=== PATIENT | female | born 1975 | race Caucasian/White ===

== ENCOUNTER 2017-02-17 09:10 | Emergency (ER) | payer OTHER ==
[2017-02-17 09:21] VITALS: BP 112/75
--- NOTE | 2017-02-17 09:58 | ED ---
Influenza-Like Illness - HPI Summary HPI Summary: PT presents through amb triage with complaint of body aches, nausea, sinus congestion. Pt states feels warm, denies documented fever. + po no n/v. + fatigue. Pt states son was dx with influenza. PT states had the flu vaccine. PT also reports recurrent sinus infection - has had sinus surgery. Pt completed a coarse of abx, bactrim, 1 week ago for sinus infection. States has some facial pressure and concern returning sinus infection. Pt's medications reviewed at this visit - History of Current Complaint Chief Complaint: UCGeneralIllness Time Seen by Provider: 02/17/17 09:11 Hx Obtained From: Patient Onset/Duration: Gradual Onset Severity: Mild Associated Signs & Symptoms: Fever - tactile, Myalgia, Cough, Nasal Congestion Related Hx: Possible Flu/Infectious Exposure - Allergy/Home Medications Allergies/Adverse Reactions: Allergies Allergy/AdvReac Type Severity Reaction Status Date / Time Clavulanic Acid AdvReac Severe Diarrhea Verified 02/17/17 09:16 [From Augmentin] Home Medications: Home Medications diPHENhydraMINE PO* [Benadryl PO 25 MG TAB*] 25 - 50 mg PO Q6H PRN 02/17/17 [ History Confirmed 02/17/17] PMH/Surg Hx/FS Hx/Imm Hx Previously Healthy: Yes Endocrine/Hematology History: Denies: Hx Diabetes, Hx Thyroid Disease Cardiovascular History: Reports: Hx Hypertension Denies: Hx Pacemaker/ICD Respiratory History: Reports: Hx Asthma, Other Respiratory Problems/Disorders - SINUS PROBLEMS Denies: Hx Chronic Obstructive Pulmonary Disease (COPD) GI History: Reports: Other GI Disorders - IBS Denies: Hx Ulcer History: Denies: Hx Renal Disease Sensory History: Denies: Hx Hearing Aid Neurological History: Reports: Other Neuro Impairments/Disorders - CHRONIC MIGRAINES Psychiatric History: Denies: Hx Panic Disorder - Surgical History Surgery Procedure, Year, and Place: Hysterectomy, 2014, [place]; Sinus Surgeries x 4 Infectious Disease History: No Infectious Disease History: Denies: Hx Clostridium Difficile, Hx Hepatitis, Hx Human Immunodeficiency Virus (HIV), Hx of Known/Suspected MRSA, Hx Shingles, Hx Tuberculosis, Hx Known/ Suspected VRE, Hx Known/Suspected VRSA, History Other Infectious Disease, Traveled Outside the [place] in Last 30 Days - Family History Known Family History: Positive: None - Social History Lives: With Family Alcohol Use: Rare Substance Use Type: Reports: None Hx Tobacco Use: Yes Smoking Status (MU): Former Smoker Type: Cigarettes Have You Smoked in the Last Year: Yes Review of Systems Constitutional: Negative Positive: Fever, Fatigue Eyes: Negative Positive: Sore Throat, Nasal Discharge Cardiovascular: Negative Respiratory: Negative Positive: Cough Gastrointestinal: Negative Genitourinary: Negative Musculoskeletal: Negative Skin: Negative Neurological: Negative Psychological: Normal All Other Systems Reviewed And Are Negative: Yes Physical Exam Triage Information Reviewed: Yes Vital Signs On Initial Exam: Initial Vitals Temp Pulse Resp BP Pulse Ox 98.8 F 74 16 112/75 98 02/17/17 09:14 02/17/17 09:14 02/17/17 09:14 02/17/17 09:14 02/17/17 09:14 Vital Signs Reviewed: Yes Appearance: Positive: Well-Appearing, No Pain Distress, Well-Nourished Skin: Positive: Warm, Skin Color Reflects Adequate Perfusion, Dry Head/Face: Positive: Normal Head/Face Inspection Eyes: Positive: Normal, EOMI, BELLE, Conjunctiva Clear ENT: Positive: Hearing grossly normal, Other - turbinates mild erythema R>L. Negative: TMs normal - right TM - scant fluid - no erythema, no retraction, no buldge Neck: Positive: Supple, Nontender, No Lymphadenopathy Respiratory/Lung Sounds: Positive: Clear to Auscultation, Breath Sounds Present Cardiovascular: Positive: Normal, RRR. Negative: Murmur Abdomen Description: Positive: Nontender, No Organomegaly, Soft Bowel Sounds: Positive: Present Musculoskeletal: Positive: Normal Neurological: Positive: Normal, Alert, Oriented to Person Place, Time Psychiatric: Positive: Normal AVPU Assessment: Alert - Ry Coma Scale Best Eye Response: 4 - Spontaneous Best Motor Response: 6 - Obeys Commands Best Verbal Response: 5 - Oriented Diagnostics - Vital Signs Vital Signs Temp Pulse Resp BP Pulse Ox 02/17/17 09:14 98.8 F 74 16 112/75 98 - Laboratory Lab Results: Lab Results 02/17/17 Range/Units 09:27 Influenza A (Rapid) Negative (Negative) Influenza B (Rapid) Negative (Negative) Lab Statement: Any lab studies that have been ordered have been reviewed, and results considered in the medical decision making process. Flu Symptom Course/Dx - Course Assessment/Plan: Pt presents with cough,body aches, head congestion, sinus pressure with influenza exposure. Influenza neg. Will start Tamiflu prophylaxis. hydrate. motrin/apap - Diagnoses Provider Diagnoses: Viral syndrome Discharge - Discharge Plan Condition: Stable Disposition: HOME Prescriptions: Oseltamivir CAP* [Tamiflu CAP*] 75 mg PO DAILY #7 cap Patient Education Materials: Viral Syndrome (ED) Referrals: Caitlyn Mcgee [Primary Care Provider] - Additional Instructions: Stay well hydrated. Drink plenty of non-alcoholic, non-caffinated beverages. Once you start to feel better - change your toothbrush and your pillowcase. These infections are spread by secretions - do NOT share eating or drinking utensils - clean items you share with other people such as cell phones, computer mouse, TV remote, computer tablets, etc You have been given a prescription for Tamiflu prophylaxis as you have an individual with positive flu in your home environment Alternate ibuprofen (Advil, Motrin) 600mg and Tylenol every 3 hours for pain or fever. Take with food. Do NOT take for more than 4-5 days. Continue with your allergy medication and decongestants as previously prescribed Call your doctor on Saturday to schedule a follow-up appointment. Call your doctor or return with any questions or concerns
== END 2017-02-17 10:05 | disposition home or self-care (01) ==
LOC: UCCORT 09:10
DX: B34.9 Viral infection, unspecified (principal); I10 Essential (primary) hypertension; J45.909 Unspecified asthma, uncomplicated; Z88.1 Allergy status to other antibiotic agents; Z87.891 Personal history of nicotine dependence
CPT/HCPCS: 87502; 99212; G0463

== ENCOUNTER → 2017-05-08 20:08 | Emergency (ER) | payer SELFPAY ==
[~2017-05-08 20:08] MED LIST: PPD test dose* 5 TU/0.1 ML TEST (*USE PPD ORDER SET*) ONE
== END | disposition home or self-care (01) ==
LOC: OHCORT 20:08
DX: Z11.1 Encounter for screening for respiratory tuberculosis (principal)

== ENCOUNTER 2017-10-30 13:43 | Emergency (ER) | payer OTHER ==
[2017-10-30 15:16] VITALS: BP 127/72
--- NOTE | 2017-10-31 20:58 | UC ---
Nausea/Vomiting/Diarrhea HPI - HPI Summary HPI Summary: 42 year old female presents with acute nausea, vomiting and diarrhea. - History of Current Complaint Chief Complaint: UCGeneralIllness Stated Complaint: VOMITTING,DIARRHEA Time Seen by Provider: 10/30/17 15:27 Hx Obtained From: Patient Hx Last Menstrual Period: 12/26/13 Onset/Duration: Sudden Onset Severity Initially: Moderate Severity Currently: Moderate Pain Intensity: 4 Pain Scale Used: 0-10 Numeric Location: Diffuse Character: Sharp Aggravating Factor(s): Food - Allergies/Home Medications Allergies/Adverse Reactions: Allergies Allergy/AdvReac Type Severity Reaction Status Date / Time Clavulanic Acid AdvReac Severe Diarrhea Verified 10/30/17 15:08 [From Augmentin] PMH/Surg Hx/FS Hx/Imm Hx Previously Healthy: Yes - Surgical History Surgical History: Yes Surgery Procedure, Year, and Place: Hysterectomy, 2014, [place]; Sinus Surgeries x 4 - Family History Known Family History: Positive: None - Social History Alcohol Use: Occasionally Substance Use Type: None Smoking Status (MU): Former Smoker Type: Cigarettes Have You Smoked in the Last Year: Yes When Did the Patient Quit Smoking/Using Tobacco: 11/27/13 - Immunization History Most Recent Influenza Vaccination: 2017 Review of Systems Constitutional: Negative Skin: Negative Eyes: Negative ENT: Negative Respiratory: Negative Cardiovascular: Negative Gastrointestinal: Abdominal Pain, Diarrhea, Nausea Genitourinary: Negative Motor: Negative Neurovascular: Negative Musculoskeletal: Negative Neurological: Negative Psychological: Negative All Other Systems Reviewed And Are Negative: Yes Physical Exam Triage Information Reviewed: Yes Vital Signs: Initial Vital Signs Temp 37.0 C 10/30/17 15:10 Pulse 108 10/30/17 15:10 Resp 18 10/30/17 15:10 BP 127/72 10/30/17 15:10 Pulse Ox 98 10/30/17 15:10 Vital Signs Reviewed: Yes Eye Exam: Normal ENT Exam: Normal Dental Exam: Normal Neck exam: Normal Neck: Positive: 1 Respiratory Exam: Normal Cardiovascular Exam: Normal Abdomen Description: Positive: Other: - diffuse tenderness Musculoskeletal Exam: Normal Neurological Exam: Normal Psychological Exam: Normal Skin Exam: Normal Naus/Vom/Diarrhea Course/Dx - Differential Dx/Diagnosis Provider Diagnoses: diarrhea. nausea. abdominal pain Condition At Discharge: Stable Discharge - Discharge Plan Condition: Stable Disposition: HOME Prescriptions: Diphenoxylat/Atrop 2.5-0.025M* [Lomotil TAB*] 1 tab PO Q8H PRN #9 tab MDD 3 PRN Reason: Diarrhea Ondansetron ODT TAB* [Zofran 4 MG Odt TAB*] 4 mg PO Q8H PRN #12 tab.odt MDD 3 PRN Reason: Nausea/Vomiting Patient Education Materials: Dehydration (ED), Acute Nausea and Vomiting (ED) Forms: *Work Release Referrals: Caitlyn Mcgee [Primary Care Provider] -
== END 2017-10-30 15:40 | disposition home or self-care (01) ==
LOC: UCCORT 13:43
DX: Z87.891 Personal history of nicotine dependence (principal); R19.7 Diarrhea, unspecified; R10.9 Unspecified abdominal pain
CPT/HCPCS: 87045; 87046; 87077; 87328; 87329; 87338; 87493; 87899; 99212; G0463

== ENCOUNTER 2018-09-02 06:46 | Inpatient (IN) | payer BC ==
[~2018-09-02 06:46] MED LIST changes: +Buffered Lidocaine 0.9% SYRIN* 5 ML/SYR SYRINGE INTRADERM ONE; +Famotidine IV* 10 MG/ML 2 ML (20 mg) IV ONE; -PPD test dose* 5 TU/0.1 ML TEST (*USE PPD ORDER SET*) ONE
--- OUTSIDE RECORDS SUMMARY | 2018-09-02 06:50 | XMS REPORT ---
:1975 External Reference #:[id number] Author Organization [employer] [facility] Address [address] [place] [address] [place] [address] Phone [phone] Care Team Providers Name Role Phone Caitlyn Mcgee FNP Primary Care Physician Unavailable Payers Type Date Identification Numbers Payment Provider Subscriber Commercial Policy Number: [id number] [employer] [place] PayID: [id number] [address] [address] [place] [address] Medigap Part B Expires: 2018 Policy Number: [facility] [employer] [place] [id number] Ppo/Epo PayID: [id number] [address] [place] [address] Problems Date Description Provider Status Onset: 09/22/2015 Migraine with aura Brock Guevara M.D. Active Onset: 04/28/2018 Plantar fascial fibromatosis Maninder Jasmine MD Active Onset: 04/28/2018 Tendon contracture Maninder Jasmine MD Active Onset: 04/28/2018 Achilles bursitis Maninder Jasmine MD Active Onset: 05/29/2018 Obstructive sleep apnea syndrome Ariana Dawn DNP RN, Active [employer] Onset: 05/29/2018 Body mass index 30+ - obesity Ariana Dawn DNP, RN, Active [employer]ER[employer] Family History Date Family Member(s) Problem(s) Comments General Arrhythmia General Cancer General Headaches General Hypertension General Diabetes Father Hypertension Father Hypercholesterolemia Mother Multiple Sclerosis (MS) Mother Hypertension Siblings 1 1 Brother Social History Type Date Description Comments Marital Status Lives With Spouse Lives With 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 Cigarette Use Former Cigarette Smoker Smoked 1-2 PPD for 12 years ETOH Use Occasionally consumes alcohol Smoking Patient is a former smoker Recreational Drug Use Denies Drug Use Daily Caffeine Consumes on average 2 cups of regular coffee per day Exercise Type/Frequency Exercises regularly Allergies, Adverse Reactions, Alerts Date Description Reaction Status Severity Comments 04/28/2018 Cephalexin active 09/22/2015 NKDA inactive Medications Medication Date Status Form Strength Qnty SIG Indications Ordering Provider Torsemide /00/ Active Tablets 20mg 1 by mouth Unknown 0000 every day Omeprazole / Active Capsules 40mg 1 by mouth Unknown 0000 DR every day Lovastatin / Active Tablets 20mg by mouth Unknown 0000 every night at bedtime Loratadine / Active Tablets 10mg 1 by mouth Unknown 0000 every day Metamucil / Active Packet 28% 1 po qd Unknown Smooth Texture 0000 Fiber Singles Naproxen / Active Tablets 500mg 1 tablet Unknown 0000 with food by mouth twice a day as needed Multivitamins / Active Capsules 1 by mouth Unknown 0000 every day Escitalopram / Active Tablets 20mg Take 1 Unknown Oxalate 0000 Tablet By Mouth Every Day Probiotic / Active Unknown 0000 Amoxicillin/Cla 05/28/ Hx Tablets 875-125mg 10tab 1 tab by Kinza wise 2018 - s mouth every B. Potassium 08/17/ hours Zurdo 2017 [employer] MI[employer]BI[employer]IST Tamiflu 12/19/ Hx Capsules 75mg 10cap take one Elsa Eliu 2018 - s capsule once MD Joaquim 05/22/ daily for 10 2017 days-influen za prophylaxis Tamiflu 12/19/ Hx Capsules 75mg 14cap 1 tab by Alex 2018 - s mouth twice Jenna, 05/22/ a day MD FACS 2017 Phentermine HCL / Hx Capsules 15mg 1 po qd Unknown 0000 - 2014 Metformin HCL / Hx Tablets 850mg 1 by mouth Unknown 0000 - every day 2014 Alprazolam / Hx Tablets 0.25mg one by mouth Unknown 0000 - up to three 09/21/ times daily 2014 as needed for anxiety Escitalopram / Hx Tablets 20mg 1 by mouth Unknown Oxalate 0000 - every day 2014 Topiramate / Hx Tablets 100mg 1 by mouth Unknown 0000 every day.. Ibuprofen / Hx Unknown 0000 - [address] 00/ Hx Unknown 0000 - 2017 Vital Signs Date Vital Result Comment 08/18/2018 Height 69 inches 5'9" Weight 249.00 lb Heart Rate 76 /min regular BP Systolic Sitting 128 mmHg Rue large BP Diastolic Sitting 84 mmHg Rue large Respiratory Rate 16 /min BMI (Body Mass Index) 36.8 kg/m2 05/29/2018 Height 69 inches 5'9" Weight 255.38 lb Heart Rate 68 /min BP Systolic Sitting 120 mmHg Rue large cuff BP Diastolic Sitting 78 mmHg Rue large cuff Respiratory Rate 16 /min O2 % BldC Oximetry 98 % BMI (Body Mass Index) 37.7 kg/m2 05/28/2018 Heart Rate 70 /min Body Temperature 98.1 F 05/23/2018 Height 70 inches 5'10" Weight 254.00 lb Heart Rate 60 /min BP Systolic Sitting 120 mmHg BP Diastolic Sitting 72 mmHg Respiratory Rate 14 /min O2 % BldC Oximetry 97 % BMI (Body Mass Index) 36.4 kg/m2 Neck Circumference in inches 15 04/28/2018 Height 70 inches 5'10" Weight 260.00 lb BP Systolic 132 mmHg BP Diastolic 88 mmHg Respiratory Rate 18 /min Body Temperature 98.4 F Pain Level 5 BMI (Body Mass Index) 37.3 kg/m2 12/14/2016 Heart Rate 76 /min BP Systolic 117 mmHg BP Diastolic 72 mmHg Respiratory Rate 18 /min Body Temperature 98.1 F 09/22/2015 Height 70 inches 5'10" Weight 260.00 lb Heart Rate 84 /min BP Systolic Sitting 108 mmHg BP Diastolic Sitting 76 mmHg BMI (Body Mass Index) 37.3 kg/m2 Results Test Date Test Result H/L Range Note Laboratory test 11/12/2017 Surgical Pathology SEE RESULT BELOW 1, 2 finding Urinalysis Profile 01/10/2017 Urine Color Yellow Urine Appearance Clear Urine Specific [place] 1.009 Low 1.010-1.030 Urine pH 5.0 5-9 Urine Urobilinogen Negative Negative Urine Ketones Negative Negative Urine Protein Negative Negative Urine Leukocytes Negative Negative Urine Blood 2+ Negative Urine Nitrite Negative Negative Urine Bilirubin Negative Negative Urine Glucose Negative Negative Urine White Blood Cell Absent Absent Urine Red Blood Cell 2+(6-10/hpf) Absent Urine Bacteria 1+ Absent Urine Squamous Epithelial Cell Present Absent Urine Culture And Sensitivities 01/10/2017 Urine Culture SEE RESULT BELOW 3 Laboratory test finding 12/14/2016 Surgical Pathology SEE RESULT BELOW 4 1 [id number] 2 SEE RESULT BELOW Name: RYAN MEMBRENO : [address]: Eyal Fagan MD Acct: [id number] Unit: [id number] AGE: 42 Location: [facility] Re11/12/17 SEX: F Status: REG REF SPEC: [id number] GLORIA: 11/12/17-[address]: Eyal Fagan MD REQ: [id number] RECD: 11/12/17-1206 STATUS: SOUT _ ORDERED: LEVEL 4, IMMUNO-FIRST, IMMUNO-ADDL, IMMUNO-QUANT COMMENTS: [id number] FINAL DIAGNOSIS Skin, left foot, excision: -- Benign compound acral melanocytic nevus with features suggestive of trauma. Comment: Immunochemical stains for Melan-A, HMB-45 and Ki-67 were performed with appropriate controls and evaluation of this specimen and support the above rendered diagnosis. Dr. Parks has reviewed this case and concurs. CLINICAL HISTORY No history given GROSS DESCRIPTION The specimen is received in formalin labeled, Left Foot Skin Lesion, and consists of a 0.7 x 0.4 cm hernandez-white unoriented skin ellipse excised to a depth of 0.2 cm with a central 0.4 by up to 0.2 cm hernandez lesion. The specimen is inked, trisected and submitted entirely in one cassette. Signed (signature on file) Bossman Sosa MD [id number] END OF REPORT * ML=Testing performed at Main Lab DEPARTMENT OF PATHOLOGY, [address] [place] [address] Bossman Sosa M.D. Director [facility] # [id number] 3 SEE RESULT BELOW Name: RYAN MEMBRENO : [address]: Joselo Feldman RPA Acct: [id number] Unit: [id number] AGE: 41 Location: LAB Re01/10/17 SEX: F Status: REG REF SPEC: [id number] GLORIA: 01/10/17-[address] [facility] [address]: Joselo Feldman RPA REQ: [id number] RECD: 01/10/17151 STATUS: SUPRIYA TOSCANO DR: Emily DOE _ SOURCE: URINE [facility]: ORDERED: Urine Culture Procedure Result Reported Site Urine Culture Final 01/11/17- 160 ML No Growth (<1,000 CFU/mL) * ML - MAIN LAB ([facility]) . END OF REPORT * ML=Testing performed at Main Lab DEPARTMENT OF PATHOLOGY, [address] [place] [address] Bossman Sosa M.D. Director [facility] # [id number] 4 SEE RESULT BELOW Name: RYAN MEMBRENO : [address]: Eyal Fagan MD Acct: [id number] Unit: [id number] AGE: 41 Location: [facility] Re12/14/16 SEX: F Status: REG REF SPEC: [id number] GLORIA: 12/14/16-[address]: Eyal Fagan MD REQ: [id number] RECD: 12/14/16-1715 STATUS: SOUT _ ORDERED: LEVEL IV COMMENTS: [id number] FINAL DIAGNOSIS Skin, left lower leg, excision: -- Dermatofibroma. CLINICAL HISTORY No history given PRE-OPERATIVE DIAGNOSIS GROSS DESCRIPTION The specimen is received in formalin labeled, Left Lower Leg Lesion, and consists of a 2.1 x 0.6 cm hernandez-white unoriented skin ellipse excised to a depth of 0.5 cm. The specimen is inked, serially sectioned and entirely submitted in cassettes A and B to include ellipse ends in cassette A. Signed (signature on file) Bossman Sosa MD 1319 END OF REPORT * ML=Testing performed at Main Lab DEPARTMENT OF PATHOLOGY, [address] [place] [address] Bossman Sosa M.D. Director [facility] # [id number] Procedures Date CPT Code Description Status 05/25/2018 20926 Sleep Study Unattended,HRT Rate,Oxygen Sat,Resp Completed Effort/Airflow 11/12/2017 80533 Biopsy Skin Lesion Single Completed 12/14/2016 49828 Excise Benign lesion 1.1-2CM Trunk/Arm/Leg Completed Encounters Type Date Location Provider CPT E/M Dx Office Visit 05/29/2018 Pul[facility]ology And Sleep Ariana Dawn, [address]505 G47.33 11:30a [facility] SANDI RN, [place] Z68.37 Office Visit 05/28/2018 11:30a [facility] Kinza Matthew [address] S70.12[facility] MIGEL Renner W54.0xxA Office Visit 05/23/2018 8:30a [facility] [place] [address] R06.83 [facility] R40.0 E66.09 Z68.36 Office Visit 04/28/2018 3:00p [facility] [place] [address] M72.2 C.M.A. M67.02 M76.62 Office Visit 05/01/2017 1:10p [facility] [place] [address] L60.1 D22.9 Office Visit 09/22/2015 10:00a Rl/Radha Guevara, 46112 R20.0 Neurologic [facility] Jose Miguel G31.84 Plan of Care Future Appointment(s):11/18/2018 8:00 am - Ariana Dawn DNP, RN, POLICE COMMANDING OFFICER-BC at [facility]08/18/2018 - Ariana Dawn DNP, RN, POLICE COMMANDING OFFICER- BCG47.33 Obstructive sleep apnea (adult) (pediatric)Comments:Sleep Apnea - HST AHI 8.4/hour, katarzyna oxygen 87%, wt 255#Follow up:3 monthsRecommendations :Continue PAP device, Benefitting and compliant with treatment. Cleaning Wipe off mask daily (baby wipe-no scent, or warm water) Clean mask, tubing, filter, and water chamber weekly in mild no scent dish soap and water. Hang to dry. So -Clean is an option (not covered by insurance) If you have any sleepiness while driving you MUST avoid operating a vehicle or machinery. If you have difficulty with your equipment, or need to replace your mask or hoses, please contact your homecare agency. A weight change of 20 pounds or more may have an effect on your equipment; if you are experiencing problems please call for an appointment. If you have any further questions, please call the [facility] at [phone].Z68.36 Body mass index (BMI) 36.0-36.9, adultRecommendations:Continue with weight loss and plans for surgery August
[2018-09-02] MEDS ORDERED: Famotidine IV* 10 MG/ML 2 ML (20 mg) ONE (07:03)
[2018-09-02] MEDS ORDERED: Ciprofloxacin 400MG IVPREMIX(* 400 MG/200 ML BAG ONE (07:03)
[2018-09-02] MEDS ORDERED: Clindamycin 900 MG/D5W BAG(*) 900 MG/50 ML BAG IVPB ONE (07:03)
[2018-09-02] MEDS ORDERED: Buffered Lidocaine 0.9% SYRIN* 5 ML/SYR SYRINGE ONE (07:03)
[2018-09-02] MEDS ORDERED: Heparin VIAL(*) 5000 UNITS/ML VIAL (FIVE THOUSAND) ONE (07:04)
[2018-09-02] MEDS ORDERED: Rocuronium* 10 MG/ML VIAL ONE (07:58)
[2018-09-02] MEDS ORDERED: fentaNYL* 50 MCG/ML 2 ML VIAL (100 MCG VIAL) ONE ×2 (07:58→09:58)
[2018-09-02] MEDS ORDERED: Midazolam* 1 MG/ML 5 ML VIAL (5 MG) ONE (07:58)
[2018-09-02] MEDS ORDERED: Succinylcholine* 20 MG/ML 10 ML VIAL ONE (08:00)
[2018-09-02] MEDS ORDERED: Propofol* 10 MG/ML 20 ML BTL IV PUSH ONE (08:00)
[2018-09-02] MEDS ORDERED: Bupivacaine 0.25% W/EPI* 10 ML SDV ONE (08:31)
[2018-09-02] MEDS ORDERED: Acetaminophen IV 1GM/100ML * 1,000 MG/100 ML VIAL IVPB ONE (09:38)
[2018-09-02] MEDS ORDERED: DiMENhydriNATE IV* 50 MG/ML VIAL IV PUSH PRN (09:38)
[2018-09-02] MEDS ORDERED: Naloxone* 0.4 MG/ML 1 ML VIAL IV PRN (09:38)
[2018-09-02] MEDS ORDERED: HYDROmorphone INJ1* 1 MG/ML SYRINGE ONE ×2 (09:57→10:47)
[2018-09-02] MEDS ORDERED: Dexamethasone IV* 4 MG/ML 1 ML (4 MG) ONE (10:00)
[2018-09-02] MEDS ORDERED: Ondansetron INJ* 2 MG/ML VIAL ONE (10:00)
[2018-09-02] MEDS ORDERED: Lidocaine 2% PF * 5 ML VIAL ONE (10:00)
[2018-09-02] MEDS ORDERED: DiMENhydriNATE IV* 50 MG/ML VIAL ONE ×2 (10:00→10:27)
[2018-09-02] MEDS ORDERED: Scopolamine 1.5 mg* PATCH ONE (10:00)
[2018-09-02] MEDS ORDERED: Ketorolac INJ* 30 MG/ML 1 ML VIAL ONE (10:00)
--- NOTE | 2018-09-02 10:18 | OP ---
Operative Report - Blank - Operative Report Date of Operation: 09/02/18 Note: Brief Operative Note Preop Dx: morbid obesity Postop Dx: same Procedure: laparoscopic sleeve gastrectomy Anesthesia: GET Surgeon: Jenna Software Administrator: BROOK Feldman Fluids: 1900 ml RL EBL: < 50 ml Specimen: portion of stomach Drains: none Findings: dictated
[2018-09-02] MEDS ORDERED: Acetaminophen ADULT LIQ* 650 MG/20.3 ML UDC PO PRN (10:24)
[2018-09-02] MEDS ORDERED: Ondansetron ODT TAB* 4 MG SL PRN (10:24)
[2018-09-02] MEDS ORDERED: diPHENhydraMINE IV* 50 MG/ML 1 ml VIAL (BENADRYL) SLOW PUSH PRN (10:24)
[2018-09-02] MEDS ORDERED: HYDROcodone/ACET. 7.5/325 LIQ* 15 ML UDC PO PRN (10:24)
[2018-09-02] MEDS ORDERED: HYDROmorphone INJ* 1 MG/ML CARPUJECT SYRINGE IV SLOW PU PRN (10:34)
[2018-09-02] MEDS ORDERED: Acetaminophen IV 1GM/100ML * 100 ML ONE (10:37)
[2018-09-02] MEDS: HYDROmorphone INJ1* 1 MG/ML SYRINGE IV PRN ×5 (10:49→11:17)
[2018-09-02] MEDS: Ondansetron INJ* 2 MG/ML VIAL IV PRN ×2 (11:52→18:12)
[2018-09-02] MEDS ORDERED: HYDROmorphone INJ1* 1 MG/ML SYRINGE IV SLOW PU PRN (12:11)
[2018-09-02] MEDS: Ketorolac INJ* 30 MG/ML 1 ML VIAL IV PRN ×2 (12:13→18:12)
--- NOTE | 2018-09-02 15:20 | PN ---
Progress Note - Progress Note Date of Service: 09/02/18 Note: POSTOP NOTE Reports doing well. Some N; no V. Would like to drink. Vital Signs Temp 97.1 F 09/02/18 13:48 Pulse 88 09/02/18 13:48 Resp 18 09/02/18 13:48 BP 145/77 09/02/18 13:48 Pulse Ox 97 09/02/18 13:48 Intake & Output 09/01/18 09/02/18 09/02/18 18:59 06:59 18:59 Intake Total 2300 Balance 2300 Weight 231 lb Intake: IV Fluids 2300 D5W 200ML, Cipro 400mg 200 LR 2000 NS 100ML, Clindamycin 100 600MG A/P: POD#0 s/p LSG. Doing well. Will adv diet to clears tonight.
[2018-09-02] MEDS: HYDROmorphone INJ1* 1 MG/ML SYRINGE IV SLOW PU PRN ×3 (15:53→23:34)
[2018-09-02] MEDS: Famotidine IV* 10 MG/ML 2 ML (20 mg) IV SLOW PU SCH (20:49)
[2018-09-02] MEDS: Heparin VIAL(*) 5000 UNITS/ML VIAL (FIVE THOUSAND) SUBCUT SCH (20:49)
[2018-09-03] MEDS: Ondansetron INJ* 2 MG/ML VIAL IV PRN ×2 (01:25→08:37)
[2018-09-03] MEDS: Ketorolac INJ* 30 MG/ML 1 ML VIAL IV PRN (04:38)
[2018-09-03] MEDS: Heparin VIAL(*) 5000 UNITS/ML VIAL (FIVE THOUSAND) SUBCUT SCH (06:30)
[2018-09-03] MEDS ORDERED: Omeprazole CAP* 20 MG PO SCH (07:30)
[2018-09-03] MEDS: Famotidine IV* 10 MG/ML 2 ML (20 mg) IV SLOW PU SCH (08:37)
[2018-09-03] MEDS ORDERED: CMCS:Escitalopram (NF) 10 MG TAB PO SCH (09:00)
[2018-09-03] MEDS ORDERED: D5W 1/2 NS KCl 20 Meq 1000 ML* 1,000 ML IV SCH (10:30)
[2018-09-03 11:49] VITALS: BP 123/59
--- NOTE | 2018-09-04 09:36 | OP ---
CC: Caitlyn Mcgee NP in [place] * DATE OF OPERATION: 09/02/18 - ROOM #352 DATE OF : [birth year] SURGEON: Alex West MD RECORDING STUDIO INTERN: BROOK Hendrix ANESTHESIA: General endotracheal. PRE-OP DIAGNOSIS: Morbid obesity. POST-OP DIAGNOSIS: Morbid obesity. OPERATIVE PROCEDURE: Laparoscopic sleeve gastrectomy. ESTIMATED BLOOD LOSS: Less than 50 mL. IV FLUIDS: Crystalloid 1.9 L. SPECIMEN: Portion of stomach. DRAINS: None. COMPLICATIONS: None. COUNTS: Instrument, needle, and sponge counts correct. DESCRIPTION OF PROCEDURE: The patient was brought to the operating room and placed on the table supine. Sequential compression devices were placed on both lower extremities. General anesthesia was administered. She was positioned and padded appropriately. She received appropriate intravenous antibiotics. She was prepped and draped in the usual sterile fashion and time-out was performed. Local anesthetic was infiltrated into the skin and soft tissue prior to making each incision. Entry into the abdomen was through a left upper quadrant incision accommodating a 5-mm optical trocar. After accessing the peritoneal cavity, carbon dioxide was insufflated to a pressure of 15 mmHg. Under direct visualization, additional 5-mm trocar was placed in the left upper quadrant laterally, 12-mm trocar was placed in the supraumbilical midline in the right upper quadrant, and a Gabbie liver retractor was placed percutaneously in the subxiphoid position and used to elevate the left lobe of the liver. The liver appeared normal. Gastric anatomy appeared normal. Dissection of the stomach proceeded starting 6 cm proximal to the pylorus. The lesser sac was entered via perigastric dissection on the greater curvature using the LigaSure. Skeletonization of the greater curvature was performed extending along the stomach all the way proximally completely freeing the fundus posteriorly as well. There was some bleeding from the cut edge of the gastrocolic ligament at the distal portion, which was controlled with clip placement and LigaSure. Next, the sleeve gastrectomy was performed over a 40- Maori bougie using sequential firings of the EndoGIA stapler with reinforced purple staple cartridges. After completing the division of the stomach, the specimen was placed into retrieval bag, which was retrieved through the right upper quadrant port site and the staple lines were inspected and noted to be intact. Ports were removed under direct visualization and carbon dioxide was released. The skin incisions were all closed with 4-0 Monocryl in subcuticular fashion. Steri-Strips were applied. The patient tolerated the procedure well. She was extubated and she was transferred to recovery in stable condition. [id number]/[facility] #: [id number] [facility]
--- NOTE | 2018-09-10 14:42 | DCNOTE ---
The patient was admitted for elective LSG which was done on 09/02/18. Refer to her H&P and Op Report for full detail. Postoperative course was uneventful. She was tolerating liquids and had adequate pain control at discharge. She was provided written instructions and will f/u at [facility] the week after surgery. Pathology revealed benign stomach. No additional tests were pending.
== END 2018-09-03 12:50 | disposition home or self-care (01) | DRG 403 ==
LOC: AA 06:46 → SSU 10:25
PROVIDERS: ADMIT Surgery; ATTEND Surgery
PROC: 0DB64Z3 Excision of Stomach, Percutaneous Endoscopic Approach, Vertical (ICD-10-PCS; principal; 2018-09-02 08:30)
DX: E66.01 Morbid (severe) obesity due to excess calories (principal); G47.33 Obstructive sleep apnea (adult) (pediatric); I10 Essential (primary) hypertension; M19.90 Unspecified osteoarthritis, unspecified site; F32.9 Major depressive disorder, single episode, unspecified; F41.9 Anxiety disorder, unspecified; G43.909 Migraine, unspecified, not intractable, without status migrainosus; E78.2 Mixed hyperlipidemia; K58.9 Irritable bowel syndrome, unspecified; K21.9 Gastro-esophageal reflux disease without esophagitis; E78.00 Pure hypercholesterolemia, unspecified; J30.2 Other seasonal allergic rhinitis; R61 Generalized hyperhidrosis; Z68.37 Body mass index [BMI] 37.0-37.9, adult; Z72.89 Other problems related to lifestyle; Z87.891 Personal history of nicotine dependence; Z88.1 Allergy status to other antibiotic agents; Z90.711 Acquired absence of uterus with remaining cervical stump; Z80.0 Family history of malignant neoplasm of digestive organs; Z80.42 Family history of malignant neoplasm of prostate; Z83.49 Family history of other endocrine, nutritional and metabolic diseases; Z82.0 Family history of epilepsy and other diseases of the nervous system; Z83.3 Family history of diabetes mellitus; Z82.49 Family history of ischemic heart disease and other diseases of the circulatory system
CPT/HCPCS: 43775; 88307; A9270-GY; J0330; J0744; J1100; J1170; J1240; J1644; J1885; J2250; J2405; J2704; J3010

== ENCOUNTER 2018-11-21 09:08 | Emergency (ER) | payer BC ==
--- OUTSIDE RECORDS SUMMARY | 2018-11-21 09:19 | XMS REPORT | Continuity of Care Document ---
:1975 External Reference #:[id number] Author Name Tiffanie Salomon Care Team Providers Name Role Phone Caitlyn Mcgee FNP Primary Care Physician Unavailable Payers Type Date Identification Numbers Payment Provider Subscriber Policy Number: [id number] [employer] [place] PayID: [id number] [address] [address] [place] [address] Expires: 2018 Policy Number: [id number] [facility] Health Ins [place] Ppo/Epo PayID: [id number] [address] [place] [address] Advance Directives Description No Information Available Problems Date Description Provider Status Onset: 09/22/2015 Migraine with aura Brock Guevara M.D. Active Onset: 04/28/2018 Plantar fascial fibromatosis Maninder Jasmine MD Active Onset: 04/28/2018 Tendon contracture Maninder Jasmine MD Active Onset: 04/28/2018 Achilles bursitis Maninder Jasmine MD Active Onset: 05/29/2018 Obstructive sleep apnea syndrome Ariana Dawn DNP RN, Active [employer] Onset: 05/29/2018 Body mass index 30+ - obesity Ariana Dawn DNP, RN, Active [employer] Family History Date Family Member(s) Problem(s) Comments General Arrhythmia General Cancer General Headaches General Hypertension General Diabetes Father Hypertension Father Hypercholesterolemia Mother Multiple Sclerosis (MS) Mother Hypertension Siblings 1 1 Brother Social History Type Date Description Comments Sex Unknown Marital Status Lives With Spouse Lives With 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 Tobacco Use Start: Unknown End: Former Cigarette Smoker Smoked 1-2 PPD for Unknown 12 years Smoking Status Reviewed: 11/18/18 Former Cigarette Smoker Smoked 1-2 PPD for 12 years ETOH Use Occasionally consumes alcohol Tobacco Use Start: Unknown End: Patient is a former Unknown smoker Recreational Drug Use Denies Drug Use Exercise Type/Frequency Exercises regularly Allergies, Adverse Reactions, Alerts Date Description Reaction Status Severity Comments 04/28/2018 Cephalexin Active 09/22/2015 NKDA Inactive Medications Medication Date Status Form Strength Qnty SIG Indications Ordering Provider Torsemide // Active Tablets 20mg 1/2 by mouth Unknown 0000 2x daily Omeprazole / Active Capsules 40mg 1 by mouth Unknown 0000 DR every day Lovastatin / Active Tablets 20mg by mouth Unknown 0000 every night at bedtime Desloratadine / Active Tablets 10mg 1 by mouth [...] Every Day Probiotic / Active Unknown 0000 Biotin / Active 1 by mouth Unknown 0000 everyday Amoxicillin/Cla 05/28/ Hx Tablets 875-125mg 10tab 1 tab by Kinza wise 2018 - s mouth every B. Potassium 08/17/ 12 hours Zurdo 2018 MATH INTERVENTIONIST Tamiflu 12/19/ Hx Capsules 75mg 10cap take one Elsa Nowak 2018 - s capsule once MD Joaquim 05/22/ daily for 10 2017 days-influen za prophylaxis Tamiflu 12/19/ Hx Capsules 75mg 14cap 1 tab by Alex 2018 - s mouth twice Jenna, 05/22/ a day , FACS 2017 Phentermine HCL / Hx Capsules 15mg 1 po qd Unknown 0000 - 2014 Metformin HCL / Hx Tablets 850mg 1 by mouth Unknown 0000 - every day 2014 Alprazolam / Hx Tablets 0.25mg one by mouth Unknown 0000 - up to three 09/21/ times daily 2014 as needed for anxiety Escitalopram // Hx Tablets 20mg 1 by mouth Unknown Oxalate 0000 - every day 2014 Topiramate / Hx Tablets 100mg 1 by mouth Unknown 0000 every day.. Ibuprofen / Hx Unknown - [address] / Hx Unknown - 2017 Immunizations Description No Information Available Vital Signs Date Vital Result Comment 11/18/2018 7:57am Height 69 inches 5'9" Weight 193.38 lb Heart Rate 60 /min BP Systolic Sitting 106 mmHg Lue regular cuff BP Diastolic Sitting 70 mmHg Lue regular cuff Respiratory Rate 16 /min O2 % BldC Oximetry 98 % BMI (Body Mass Index) 28.6 kg/m2 08/18/2018 8:24am Height 69 inches 5'9" Weight 249.00 lb Heart Rate 76 /min regular BP Systolic Sitting 128 mmHg Rue large BP Diastolic Sitting 84 mmHg Rue large Respiratory Rate 16 /min BMI (Body Mass Index) 36.8 kg/m2 05/29/2018 11:16am Height 69 inches 5'9" Weight 255.38 lb Heart Rate 68 /min BP Systolic Sitting 120 mmHg Rue large cuff BP Diastolic Sitting 78 mmHg Rue large cuff Respiratory Rate 16 /min O2 % BldC Oximetry 98 % BMI (Body Mass Index) 37.7 kg/m2 05/28/2018 11:34am Heart Rate 70 /min Body Temperature 98.1 F 05/23/2018 8:18am Height 70 inches 5'10" Weight 254.00 lb Heart Rate 60 /min BP Systolic Sitting 120 mmHg BP Diastolic Sitting 72 mmHg Respiratory Rate 14 /min O2 % BldC Oximetry 97 % BMI (Body Mass Index) 36.4 kg/m2 Neck Circumference in inches 15 04/28/2018 3:03pm Height 70 inches 5'10" Weight 260.00 lb BP Systolic 132 mmHg BP Diastolic 88 mmHg Respiratory Rate 18 /min Body Temperature 98.4 F Pain Level 5 BMI (Body Mass Index) 37.3 kg/m2 12/14/2016 2:03pm Heart Rate 76 /min BP Systolic 117 mmHg BP Diastolic 72 mmHg Respiratory Rate 18 /min Body Temperature 98.1 F 09/22/2015 10:21am Height 70 inches 5'10" Weight 260.00 lb Heart Rate 84 /min BP Systolic Sitting 108 mmHg BP Diastolic Sitting 76 mmHg BMI (Body Mass Index) 37.3 kg/m2 Results Test Date Facility Test Result H/L Range Note Laboratory test 09/02/2018 [facility] Surgical SEE RESULT [address] [place] [address] [phone] CBC No Diff 08/25/2018 [facility] White Blood 9.7 10^3/uL N 3.5-10.[address] [place] [address] [phone] Red Blood Count 4.58 10^6/uL N 4.00-5.40 Hemoglobin 14.0 g/dL N 12.0-16.0 Hematocrit 40 % N 35-47 Mean Corpuscular Volume 88 fL N 80-97 Mean Corpuscular Hemoglobin 31 pg N 27-31 Mean Corpuscular HGB Conc 35 g/dL N 31-36 Red Cell Distribution Width 13 % N 10.5-15 Platelet Count 242 10^3/uL N 150-450 Mean Platelet Volume 8.9 um3 N 7.4-10.4 Basic Metabolic 08/25/2018 [facility] Sodium 134 mmol/L Low 135-[address] [place] [address] [phone] Potassium 3.7 mmol/L N 3.5-5.0 Chloride 96 mmol/L Low 101-111 Co2 Carbon Dioxide 29 mmol/L N 22-32 Anion Gap 9 mmol/L N 2-11 Glucose 96 mg/dL N 70-100 Blood Urea Nitrogen 20 mg/dL N 6-24 Creatinine 0.79 mg/dL N 0.51-0.95 BUN/Creatinine Ratio 25.3 High 8-20 Calcium 9.6 mg/dL N 8.6-10.3 Egfr Non- 80.2 >60 Egfr 97.0 >60 3 CBC No Diff 08/25/2018 [facility] White Blood 9.7 10^3/uL N 3.5-10.[address] [place] [address] [phone] Red Blood Count 4.58 10^6/uL N 4.00-5.40 Hemoglobin 14.0 g/dL N 12.0-16.0 Hematocrit 40 % N 35-47 Mean Corpuscular Volume 88 fL N 80-97 Mean Corpuscular Hemoglobin 31 pg N 27-31 Mean Corpuscular HGB Conc 35 g/dL N 31-36 Red Cell Distribution Width 13 % N 10.5-15 Platelet Count 242 10^3/uL N 150-450 Mean Platelet Volume 8.9 um3 N 7.4-10.4 Laboratory test 11/12/2017 [facility] Surgical SEE RESULT 4 , [address] [place] [address] [phone] Urinalysis 01/10/2017 [facility] Urine Color Yellow N Profile [address] [place] [address] [phone] Urine Appearance Clear N Urine Specific [place] 1.009 Low 1.010-1.030 Urine pH 5.0 N 5-9 Urine Urobilinogen Negative N Negative Urine Ketones Negative N Negative Urine Protein Negative N Negative Urine Leukocytes Negative N Negative Urine Blood 2+ Abnormal Negative Urine Nitrite Negative N Negative Urine Bilirubin Negative N Negative Urine Glucose Negative N Negative Urine White Blood Cell Absent N Absent Urine Red Blood Cell 2+(6-10/hpf) Abnormal Absent Urine Bacteria 1+ Abnormal Absent Urine Squamous Epithelial Cell Present Abnormal Absent Urine Culture And 01/10/2017 [facility] Urine Culture SEE RESULT [address] [place] [address] [phone] Laboratory test 12/14/2016 [facility] Surgical SEE RESULT [address] [place] [address] [phone] 1 SEE RESULT BELOW Name: RYAN MEMBRENO : [address]: Alex West MD Acct: [id number] Unit: [id number] AGE: 43 Location: [facility] [id number] Re09/02/18 Dis: 09/03/18 SEX: F Status: DIS IN SPEC: [id number] GLORIA: 09/02/18- SUBM DR: Alex West MD REQ: [id number] RECD: 09/02/185 STATUS: SOUT _ ORDERED: LEVEL 5 FINAL DIAGNOSIS Stomach, partial resection: -- Segment of stomach with fundic-type mucosa and passive vascular congestion. PRE-OPERATIVE DIAGNOSIS Morbid obesity GROSS DESCRIPTION The specimen is received in formalin labeled, Portion of Stomach, and consists of a 20.8 x 4.8 x 1.7 cm previously disrupted portion of gastric tissue. The serosa is smooth to shaggy hernandez-pink with multiple defects, scant adherent yellow fat and a prominent staple line. The mucosa is predominantly disrupted. The intact mucosa is glistening hernandez-red with normal rugal folds. Received separately in the same container is a 10.6 x 9.5 by up to 2.5 cm aggregate of hernandez-brown irregular mucosal tissue fragments. Hair Specialist sections, one cassette. Signed by and Reported on: Bossman Sosa MD [id number] END OF REPORT DEPARTMENT OF PATHOLOGY, [address] [place] [address] Bossman Sosa M.D. Director [facility] # [id number] 2 09/02 3 Because ethnic data is not always readily available, this report includes an eGFR for both -Americans and non- Americans. The National Kidney Disease Education Program (NKDEP) does not endorse the use of the MDRD equation for patients that are not between the ages of 18 and 70, are , have extremes of body size, muscle mass, or nutritional status, or are non- or non-. According to the National Kidney Foundation, irrespective of diagnosis, the stage of the disease is based on the level of kidney function: Stage Description GFR(mL/min/1.73 m(2)) 1 Kidney damage with normal or decreased GFR 90 2 Kidney damage with mild decrease in GFR 60-89 3 Moderate decrease in GFR 30-59 4 Severe decrease in GFR 15-29 5 Kidney failure <15 (or dialysis) 4 [id number] 5 SEE RESULT BELOW Name: RYAN MEMBRENO : [address]: Eyal Fagan MD Acct: [id number] Unit: [id number] AGE: 42 Location: [facility] Re11/12/17 SEX: F Status: REG REF SPEC: [id number] GLORIA: 11/12/17-[address]: Eyal Fagan MD REQ: [id number] RECD: 01/09/18-1206 STATUS: SOUT _ ORDERED: LEVEL 4, IMMUNO-FIRST, IMMUNO-ADDL, IMMUNO-QUANT COMMENTS: [id number] FINAL DIAGNOSIS Skin, left foot, excision: -- [...] performed at Main Lab DEPARTMENT OF PATHOLOGY, [address] [place] [address] Bossman Sosa M.D. Director [facility] # [id number] 6 SEE RESULT BELOW Name: RYAN MEMBRENO : [address]: Joselo Feldman RPA Acct: [id number] Unit: [id number] AGE: 41 Location: LAB Re01/10/17 SEX: F Status: REG REF SPEC: [id number] GLORIA: 01/10/17-[address]: Joselo Feldman RPA REQ: [id number] RECD: 01/10/17 STATUS: SUPRIYA TOSCANO DR: Emily DOE _ SOURCE: URINE SPDESC: ORDERED: Urine Culture Procedure Result Reported Site Urine Culture Final 01/11/17- 1607 ML No Growth (<1,000 CFU/mL) * ML - MAIN LAB ([facility]) . END OF REPORT * ML=Testing performed at Main Lab DEPARTMENT OF PATHOLOGY, [address] [place] [address] Bossman Sosa M.D. Director [facility] # [id number] 7 SEE RESULT BELOW Name: RYAN MEMBRENO : [address]: Eyal Fagan MD Acct: [id number] Unit: [id number] AGE: 41 Location: [facility] Re12/14/16 SEX: F Status: REG REF SPEC: [id number] GLORIA: 12/14/16-70[address] [facility] DR: Eyal Fagan MD REQ: [id number] RECD: 12/14/16744 STATUS: SOUT _ ORDERED: LEVEL IV COMMENTS: [id number] FINAL DIAGNOSIS Skin, left lower leg, excision: [...] performed at Main Lab DEPARTMENT OF PATHOLOGY, [address] [place] [address] Bossman Sosa M.D. Director [facility] # [id number] Procedures Date Code Description Status 05/25/2018 88245 Sleep Study Unattended,HRT Rate,Oxygen Sat,Resp Completed Effort/Airflow 11/12/2017 60828 Biopsy Skin Lesion Single Completed 12/14/2016 84304 Excise Benign lesion 1.1-2CM Trunk/Arm/Leg Completed Encounters Type Date Location Provider Dx Diagnosis Office Visit 08/18/2018 Pulmonology And Ariana Dawn, G47.33 Obstructive sleep 8:30a [facility]- apnea (adult) [facility] (pediatric) Z68.36 Body mass index (BMI) 36.0-36.9, adult Office Visit 05/29/[address] G47.33 Obstructive sleep 11:30a [facility] Dawn, RN, apnea (adult) [facility] (pediatric) Z68.37 Body mass index (BMI) 37.0-37.9, adult Office Visit 05/28/2018 Surgical Kinza Matthew S70.12xA Contusion of 11:30a [facility] left thigh, [facility] initial encounter W54.0xxA Bitten by dog, initial encounter Office Visit 05/23/2018 8:30a Pulmonology And Sleep Alice Burton, R06.83 [facility] R40.0 Somnolence E66.09 Other obesity due to excess calories Z68.36 Body mass index (BMI) 36.0-36.9, adult Office Visit 04/28/2018 3:00p Orthopedic Maninder Jasmine, M72.2 Plantar fascial Services [facility] magnus Webber M67.02 Short Achilles tendon (acquired), left ankle M76.62 Achilles tendinitis, left leg Office Visit 05/01/2017 1:10p [facility] Dermatology Louis Lopes MD L60.1 Onycholysis D22.9 Melanocytic nevi, unspecified Office Visit 09/22/2015 Rl/Radha Holley R20.0 Anesthesia of 10:00a [facility] Guevara skin [facility] G31.84 Mild cognitive impairment, so stated Plan of Treatment Future Appointment(s):05/19/2019 8:15 am - Ariana Dawn DNP, RN, [employer] [facility] at [facility]11/18/2018 - Ariana Dawn DNP, RN, [employer]- BCG47.33 Obstructive sleep apnea (adult) (pediatric)Comments:Sleep Apnea - HST AHI 8.4/hour, katarzyan oxygen 87%, wt 255#On CPAP auto AHI 4.3/hour ( normal)Follow up:6 monthsRecommendations:Continue PAP device, Benefitting and compliant with treatment. Lower pressure to 4-6 cm May need mask refitted with the weight loss Cleaning Wipe off mask daily (baby wipe-no scent, or warm water ) Clean mask, tubing, filter, and water chamber weekly in mild no scent dish soap and water. Hang to dry. If you have any sleepiness while driving [...] please call the [facility] at [phone].M69.81 Nasal congestionRecommendations:Resume nasal steroid spray continue Neti pot See PCP or relay assembler if congestion does not improve.Z68.28 Body mass index (BMI) 28.0-28.9, adultRecommendations:Continue with weight loss efforts
[2018-11-21 09:27] VITALS: BP 106/67
--- NOTE | 2018-11-21 09:58 | UC ---
Throat Pain/Nasal Foster HPI - HPI Summary HPI Summary: Patient presents to urgent care requesting the testing for flu. 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 Patient's son who lives with her was diagnosed with influenza yesterday. Patient states she's had a little bit of a scratchy throat and fatigue. No myalgias. No fevers or chills. Patient requesting to be checked for flu. Patient without any other complaints. Patient is not immunocompromised. Patient's medications reviewed this visit - History of Current Complaint Chief Complaint: UCRespiratory Stated Complaint: FLU EXPOSURE, SORE THROAT Time Seen by Provider: 11/21/18 09:43 Hx Obtained From: Patient Hx Last Menstrual Period: 12/26/13 Pain Intensity: 0 - Allergies/Home Medications Allergies/Adverse Reactions: Allergies Allergy/AdvReac Type Severity Reaction Status Date / Time amoxicillin [From Augmentin] AdvReac Severe Diarrhea Verified 11/21/18 09:20 clavulanic acid AdvReac Severe Diarrhea Verified 11/21/18 09:20 [From Augmentin] Home Medications: Home Medications D-Methorphan/PE/Acetaminophen [Cold/Flu Relief] 1 liq PO ONCE PRN 11/21/18 [ History Confirmed 11/21/18] PMH/Surg Hx/FS Hx/Imm Hx Previously Healthy: Yes - Surgical History Surgical History: Yes Surgery Procedure, Year, and Place: Hysterectomy, 2013, [place]; Sinus Surgeries x 4. gastric sleeve - Family History Known Family History: Positive: None - Social History Alcohol Use: Occasionally Substance Use Type: None Smoking Status (MU): Former Smoker Type: Cigarettes Amount Used/How Often: 1 ppd x10 years Have You Smoked in the Last Year: Yes When Did the Patient Quit Smoking/Using Tobacco: 11/27/13 - Immunization History Most Recent Influenza Vaccination: 2017 Most Recent Pneumonia Vaccination: none Review of Systems All Other Systems Reviewed And Are Negative: Yes Constitutional: Positive: Fatigue ENT: Positive: Sore Throat Physical Exam - Summary Physical Exam Summary: Vital Signs Reviewed: Yes A+Ox3, no distress Eyes: Conjunctiva Clear, BELLE. EOM intact and full ENT: Hearing grossly normal TM x 2 clear, mmoist, uvula midline, no exudate, no erythema Neck: Positive: Supple Respiratory: Positive: No respiratory distress, No accessory muscle use + CTA throughout no w/r Cardiovascular: RRR nl s1, s2 no m/r CBT <2 sec abd soft + BS nt/nd no guarding, no distension Musculoskeletal Exam: LYONS x 4 without difficulty Strength Intact, ROM Intact Neurological: Positive: Alert, + sensation throughout Psychological: Positive: Normal Response To Family Skin: Positive: no rash, no ecchymosis Triage Information Reviewed: Yes Vital Signs: Initial Vital Signs Temp 98 F 11/21/18 09:23 Pulse 57 11/21/18 09:23 Resp 16 11/21/18 09:23 BP 106/67 11/21/18 09:23 Pulse Ox 100 11/21/18 09:23 Throat Pain/Nasal Course/Dx - Course Course Of Treatment: Pt presents requesitg flu test -pt with 24 hours sore throat and fatigue. Pt's son with + flu. pt works in healthcare. flu neg. will give prophylatic Tamiflu. hydrate. secretion precaution. return precaution - Differential Dx/Diagnosis Provider Diagnosis: URI (upper respiratory infection), Exposure to influenza Discharge - Sign-Out/Discharge Documenting (check all that apply): Patient Departure All imaging exams completed and their final reports reviewed: No Studies - Discharge Plan Condition: Stable Disposition: HOME Prescriptions: Oseltamivir CAP* [Tamiflu CAP*] 75 mg PO DAILY #10 cap Patient Education Materials: Upper Respiratory Infection (ED), Viral Syndrome ( ED) Referrals: Caitlyn Mcgee [Primary Care Provider] - Additional Instructions: - Stay well hydrated. Drink plenty of non-alcoholic, non-caffinated beverages. - Alternate ibuprofen (Advil, Motrin) 600mg and Tylenol every 3 hours for pain or fever. Take with food. Do NOT take for more than 4-5 days. - These infections are spread by secretions - do NOT share eating or drinking utensils - clean items you share with other people such as cell phones, computer mouse, TV remote, computer tablets,etc. Once you start to feel better, change your toothbrush and your pillowcase. - get plenty of restful sleep - humidify the air in the room where you sleep - boil water, run a hot steam shower, vaporizer, cups of water by heat register - okay to take over the counter decongestant and cough medication -resume your steroid nasal spray. - Take Tamiflu daily as prescribed as a prophylatic for influenza given your in house exposure - contact your doctor or return with questions or concerns - Billing Disposition and Condition Condition: STABLE Disposition: Home
== END 2018-11-21 10:20 | disposition home or self-care (01) ==
LOC: UCCORT 09:08
DX: J06.9 Acute upper respiratory infection, unspecified (principal); Z20.828 Contact with and (suspected) exposure to other viral communicable diseases; Z88.1 Allergy status to other antibiotic agents; Z88.0 Allergy status to penicillin; Z87.891 Personal history of nicotine dependence
CPT/HCPCS: 99212; G0463

== ENCOUNTER 2019-02-04 10:13 | Emergency (ER) | payer BC ==
[2019-02-04] MEDS ORDERED: NS 0.9% 1000 ML** 1,000 ML IV ONE (10:21)
--- NOTE | 2019-02-04 10:33 | ED ---
Neurological HPI - HPI Summary HPI Summary: A 43 y/o F presents to ED with c/o dizziness ongoing for the past few weeks. Pt had gastric bypass surgery on Sep 02, [address] West, surgery, and has lost [address] West is aware of the ongoing dizziness, they've been trying a few remedies such as increasing her potassium, compression socks. The dizziness is described as weak, lightheaded. Aggravating factors: positional changes. Associated sx: fatigue. Denies pedal edema, CP, SOB, abd pain, diarrhea , changes in bowel movements, changes in appetite, numbness, speech changes. She is no longer on HTN medication as of a month ago. Denies DM. She takes Vitamins, Omeprazole, and Lexapro. She is an RN, and gets yearly check-ups. Other surgical hx: hysterectomy, sinus. Former smoker, quit 3-4 years ago. ETOH use is rare. - History of Current Complaint Chief Complaint: EDDizziness Stated Complaint: DIZZY, LIGHTHEADED PER PT Time Seen by Provider: 02/04/19 10:20 Hx Obtained From: Patient Hx Last Menstrual Period: 12/26/13 Onset/Duration: Started weeks ago, Still Present Timing: Constant Onset Severity: Moderate Current Severity: Moderate Pain Intensity: 0 Pain Scale Used: 0-10 Numeric Character: Lightheaded, Weak Aggravating: Position Change/Supine to Erect Associated Signs and Symptoms: Negative: Impaired Speech, Numbness, Diarrhea, Chest Pain, Shortness of Breath - Additional Pertinent History Primary Care Physician: [id number] - Allergy/Home Medications Allergies/Adverse Reactions: Allergies Allergy/AdvReac Type Severity Reaction Status Date / Time amoxicillin [From Augmentin] AdvReac Severe Diarrhea Verified 02/04/19 10:37 clavulanic acid AdvReac Severe Diarrhea Verified 02/04/19 10:37 [From Augmentin] PMH/Surg Hx/FS Hx/Imm Hx Previously Healthy: No Endocrine/Hematology History: Denies: Hx Diabetes, Hx Thyroid Disease Cardiovascular History: Reports: Hx Hypertension Denies: Hx Pacemaker/ICD Respiratory History: Reports: Hx Asthma, Hx Sleep Apnea - cpap, Other Respiratory Problems/Disorders - SINUS PROBLEMS Denies: Hx Chronic Obstructive Pulmonary Disease (COPD) GI History: Reports: Hx Gastroesophageal Reflux Disease, Other GI Disorders - IBS Denies: Hx Ulcer History: Denies: Hx Renal Disease Musculoskeletal History: Reports: Hx Arthritis - shoulders, wrist, ankles, Hx Tendonitis - wrist Sensory History: Reports: Hx Contacts or Glasses - glasses Denies: Hx Hearing Aid Opthamlomology History: Reports: Hx Contacts or Glasses - glasses Neurological History: Reports: Hx Migraine - rare now, Other Neuro Impairments/ Disorders - CHRONIC MIGRAINES Psychiatric History: Reports: Hx Anxiety - lexapro Denies: Hx Panic Disorder - Surgical History Surgery Procedure, Year, and Place: Hysterectomy, 2014, [place]; Sinus Surgeries x 4. gastric sleeve Hx Anesthesia Reactions: No Infectious Disease History: No Infectious Disease History: Denies: Hx Clostridium Difficile, Hx Hepatitis, Hx Human Immunodeficiency Virus (HIV), Hx of Known/Suspected MRSA, Hx Shingles, Hx Tuberculosis, Hx Known/ Suspected VRE, Hx Known/Suspected VRSA, History Other Infectious Disease, Traveled Outside the [place] in Last 30 Days - Family History Known Family History: Positive: None Family History: neg: breast CA - Social History Occupation: Employed Full-time Lives: With Family Alcohol Use: Occasionally Substance Use Type: Reports: None Hx Tobacco Use: Yes Smoking Status (MU): Former Smoker Type: Cigarettes Amount Used/How Often: 1 ppd x10 years Have You Smoked in the Last Year: Yes Review of Systems Positive: Fatigue Negative: Chest Pain Negative: Shortness Of Breath Negative: Abdominal Pain, Diarrhea, Other - neg: bowel changes, changes in appetite Negative: Edema Positive: Headache. Negative: Numbness, Slurred Speech All Other Systems Reviewed And Are Negative: Yes Physical Exam - Summary Physical Exam Summary: Appearance: Well appearing, no pain distress Skin: warm, dry, reflects adequate perfusion Head/face: normal Eyes: EOMI, BELLE ENT: mucous membranes moist Neck: supple, non-tender Respiratory: CTA, breath sounds present Cardiovascular: RRR, pulses symmetrical Abdomen: non-tender, soft Bowel Sounds: present Musculoskeletal: normal, strength/ROM intact. Wearing compression socks. Neuro: normal, sensory motor intact, A&Ox3 Triage Information Reviewed: Yes Vital Signs On Initial Exam: Initial Vitals Temp Pulse Resp BP Pulse Ox 98.6 F 70 16 128/83 98 02/04/19 10:15 02/04/19 10:15 02/04/19 10:15 02/04/19 10:15 02/04/19 10:15 Vital Signs Reviewed: Yes Diagnostics - Vital Signs Vital Signs Temp Pulse Resp BP Pulse Ox 02/04/19 10:15 98.6 F 70 16 128/83 98 - Laboratory Result Diagrams: 02/04/19 10:44 02/04/19 10:44 Lab Statement: Any lab studies that have been ordered have been reviewed, and results considered in the medical decision making process. - EKG 1039 Cardiac Rate: Bradycardia - 55 bpm EKG Rhythm: Sinus Bradycardia ST Segment: Normal Summary of EKG Findings: Nml axis, nml interval. Re-Evaluation - Re-Evaluation 1 Re-Evaluation Time: 11:17 Change: Improved Comment: Discussing labs results with pt. Mildly improved. 2 Re-Evaluation Time: 12:04 Change: Improved Comment: Discussing consult with Dr. West, and will see in ED. Course/Dx - Course Course Of Treatment: Well-appearing patient with approximately 3 months of worsening and episodic lightheadedness without rotational dizziness. All laboratories are benign. The bariatric surgeon saw the patient here and was concerned for neurologic disorder. I talked with the neurologist who would like to see her outpatient and possibly get repeat MRI. No orthostasis. Given IV fluids here with some improvement. - Differential Dx Differential Diagnoses Neuro: Positive: Anxiety, Benign Paroxysmal Positional Vertigo, GI Bleed, Hypoglycemia, Hypovolemia, Labyrinthitis, Medication Reaction , Metabolic Abnormality - Diagnoses Provider Diagnoses: Lightheadedness - Physician Notifications Discussed Care Of Patient With: Alex West - surgery Time Discussed With Above Provider: 12:02 Instructed by Provider To: MD Will See In ED - Repeat consult at 1226, who recommends contacting Dr. Guevara, on-call neuro. Discharge - Sign-Out/Discharge Documenting (check all that apply): Patient Departure - D/C Patient Received Moderate/Deep Sedation with Procedure: No - Discharge Plan Condition: Stable Disposition: HOME Patient Education Materials: Lightheadedness (ED) Referrals: Brock Guevara MD [Medical Doctor] - Caitlyn Mcgee [Primary Care Provider] - Additional Instructions: Call your doctor today to schedule prompt follow-up. Make sure you're taking her vitamins and staying well-hydrated. You may need an outpatient MRI. Return with increased weakness, passing out, worse, new symptoms or other concerns. - Billing Disposition and Condition Condition: STABLE Disposition: Home - Attestation Statements Document Initiated by Lola: Yes Documenting Scribe: Castillo Gaitan Provider For Whom Lola is Documenting (Include Credential): Dr. Jaya Nick MD Scribe Attestation: I, Castillo Gaitan, scribed for Dr. Jaya Nick MD on 02/04/19 at 1647. Scribe Documentation Reviewed: Yes Provider Attestation: The documentation as recorded by the lola, Castillo Gaitan accurately reflects the service I personally performed and the decisions made by me, Dr. Jaya Nick MD Status of Scribe Document: Viewed Consult Consult: 1251: Consult with Dr. Wong, neuro Recommends out-patient follow-up.
[2019-02-04 10:51] LABS: ABS Basophils 0 10^3/ul (0-0.2); ABS Eosinophils 0.5 10^3/ul (0-0.6); ABS Lymphocytes 1.5 10^3/ul (1.0-4.8); ABS Monocytes 0.5 10^3/ul (0-0.8); ABS Neutrophils 5.7 10^3/ul (1.5-7.7); ABS Nucleated RBC 0 10^3/ul; Eosinophil % 5.9 %; Hematocrit 39 % (33-41); Hemoglobin 13.3 g/dL (12.0-16.0); Lymphocyte % 18.5 %; Mean Corpuscular HGB Conc 34 g/dL (31-36); Mean Corpuscular Hemoglobin 30 pg (27-31); Mean Corpuscular Volume 88 fL (80-97); Nucleated Red Blood Cells % 0; Platelet Count 199 10^3/uL (150-450); Red Blood Count 4.42 10^6 /uL (3.70-4.87); Red Cell Distribution Width 14 % (10.5-15); White Blood Count 8.3 10^3/uL (3.5-10.8)
[2019-02-04 11:14] LABS: Albumin 4.2 g/dL (3.2-5.2); Albumin/Globulin Ratio 1.7 (1-3); BUN/Creatinine Ratio 34.5 (8-20); Calcium 9.5 mg/dL (8.6-10.3); EGFR African American 138.6 (>60); EGFR Non-African American 114.6 (>60); Globulin 2.5 g/dL (2-4); Magnesium 2.2 mg/dL (1.9-2.7); Total Bilirubin 0.5 mg/dL (0.2-1.0); Total Protein 6.7 g/dL (6.4-8.9)
[2019-02-04] MEDS ORDERED: Meclizine TAB* 12.5 MG PO ONE (11:18)
[2019-02-04 11:24] LABS: Urine Appearance Clear; Urine Bacteria Absent (Absent); Urine Bilirubin Negative (Negative); Urine Blood 1+ (Negative); Urine Color Straw; Urine Glucose Negative (Negative); Urine Ketones Negative (Negative); Urine Nitrite Negative (Negative); Urine Protein Negative (Negative); Urine Red Blood Cell Trace(0-2/hpf) (Absent); Urine Specific Gravity 1.004 (1.010-1.030); Urine Squamous Epithelial Cell Present (Absent); Urine Urobilinogen Negative (Negative); Urine White Blood Cell Absent (Absent)
[2019-02-04 11:53] LABS: TSH (Thyroid Stimulating Horm) 1.63 mcIU/mL (0.34-5.60)
[2019-02-04 11:57] LABS: Free T4 1.01 ng/dL (0.61-1.12)
[2019-02-04 14:22] VITALS: BP 119/62
== END 2019-02-04 14:30 | disposition home or self-care (01) ==
LOC: ED 10:13
DX: R42 Dizziness and giddiness (principal); Z87.891 Personal history of nicotine dependence; Z98.84 Bariatric surgery status
CPT/HCPCS: 36415; 80053; 81003; 81015; 83735; 84100; 84439; 84443; 84484; 85025; 93005; 96360; 96361; 99283; A9270-GY

== ENCOUNTER 2019-06-08 20:18 | Emergency (ER) | payer BC ==
--- NOTE | 2019-06-08 20:29 | UC ---
Bite Injury/Animal HPI - HPI Summary HPI Summary: 43 yo female presents with dog bite to right index finger. She tells me that she has a deaf young pitbull at home that they are trying to train. This evening the dog got into a fight with their other dog and pt was trying to break up the fight. When she went to examine the injuries on the pitbull, the dog snapped at her and bit her right index finger. She cleansed the area with soap and water and applied a bandage and came to . She states the dog is UTD on all immunizations. Pt is unsure the date of her last tetanus. - History of Current Complaint Stated Complaint: DOG BITE RIGHT HAND Time Seen by Provider: 06/08/19 20:28 Hx Obtained From: Patient Hx Last Menstrual Period: 12/26/13 Severity Currently: Moderate Severity Initially: Moderate Pain Intensity: 5 Pain Scale Used: 0-10 Numeric Onset/Duration: Sudden Onset Type of Bite: Animal Has Animal Been Immunized?: Yes Character: Abrasion/Laceration - Allergies/Home Medications Allergies/Adverse Reactions: Allergies Allergy/AdvReac Type Severity Reaction Status Date / Time amoxicillin [From Augmentin] AdvReac Severe Diarrhea Verified 02/17/19 15:23 clavulanic acid AdvReac Severe Diarrhea Verified 02/17/19 15:23 [From Augmentin] PMH/Surg Hx/FS Hx/Imm Hx Endocrine History: Dyslipidemia Psychological History: Anxiety, Depression - Surgical History Surgical History: Yes Surgery Procedure, Year, and Place: Hysterectomy, 2014, [place]; Sinus Surgeries x 4. gastric sleeve - Family History Known Family History: Positive: None Family History: neg: breast CA - Social History Lives: With Family Alcohol Use: Occasionally Substance Use Type: None Smoking Status (MU): Former Smoker Type: Cigarettes Amount Used/How Often: 1 ppd x10 years Have You Smoked in the Last Year: Yes When Did the Patient Quit Smoking/Using Tobacco: 11/27/13 - Immunization History Most Recent Influenza Vaccination: 2017 Most Recent Pneumonia Vaccination: none Review of Systems All Other Systems Reviewed And Are Negative: Yes Constitutional: Positive: Negative Skin: Positive: Other - Dog bite Respiratory: Positive: Negative Cardiovascular: Positive: Negative Neurovascular: Positive: Negative Musculoskeletal: Positive: Negative Neurological: Positive: Negative Psychological: Positive: Negative Physical Exam - Summary Physical Exam Summary: GENERAL: NAD. WDWN. No pain distress. SKIN: RIGHT index finger: radial aspect at the PIP with superficial skin tear. Clean appearing. CHEST: No accessory muscle use. Breathing comfortably and in no distress. CV: Pulses intact. Cap refill <2seconds MSK: Right index finger: FROM at MCP, PIP, and DIP NEURO: Alert. PSYCH: Age appropriate behavior. Triage Information Reviewed: Yes Vital Signs Reviewed: Yes Bite Injury Course/Dx - Course Course Of Treatment: The bite area was irrigated with NS. tdap updated today Will place her on doxycycline for prophylactic infection and have her f/u with the health department - Differential Dx/Diagnosis Provider Diagnosis: Dog bite of finger Discharge - Sign-Out/Discharge Documenting (check all that apply): Patient Departure All imaging exams completed and their final reports reviewed: No Studies - Discharge Plan Condition: Stable Disposition: HOME Prescriptions: DOXYcycline CAP(*) [DOXYcycline 100MG CAP(*)] 100 mg PO BID #14 cap Patient Education Materials: Animal Bite (ED) Referrals: Beverley Gong MD [Primary Care Provider] - Additional Instructions: If you develop a fever, redness/streaking or increased swelling, shortness of breath, chest pain, new or worsening symptoms - please call your PCP or go to the ED immediately. Change the bandaged daily Apply ice to the area to decrease pain and swelling - Billing Disposition and Condition Condition: STABLE Disposition: Home
--- OUTSIDE RECORDS SUMMARY | 2019-06-08 20:40 | XMS REPORT | Continuity of Care Document ---
:1975 External Reference #:[id number] Author Name Tiffanie Salomon Care Team Providers Name Role Phone Beverley Gong M.D. Primary Care Physician Unavailable Payers Date Identification Numbers Payment Provider Subscriber Policy Number: [id number] [employer] [place] PayID: [id number] [address] [place] [address] Expires: 2018 Policy Number: [id number] [facility] Ppo/Epo [place] PayID: [id number] [address] [place] [address] Effective: 2011 Policy Number: [id number] [facility] Ppo Ryan Membreno Expires: 2018 PayID: [id number] [address] [place] [address] Policy Number: [id number] Cont: [facility] Ryan Membreno PayID: [id number] Attn Human [employer] [address] [place] [address] Problems Active Problems Provider Date Migraine with aura Brock Guevara M.D. Onset: 09/22/2015 Plantar fascial fibromatosis Maninder Jasmine MD Onset: 04/28/2018 Tendon contracture Maninder Jasmine MD Onset: 04/28/2018 Achilles bursitis Maninder Jasmine MD Onset: 04/28/2018 Obstructive sleep apnea syndrome Ariana Dawn DNP, RN, [place] Onset: Disorder of nasal cavity Ariana Dawn DNP, RN, [place] Onset: 11/18/2018 Body mass index 25-29 - overweight Ariana Dawn DNP, RN, HYDRO PNEUMATIC TESTER-BC Onset: Resolved Problems Body mass index 30+ - obesity Ariana Dawn DNP, RN, HYDRO PNEUMATIC TESTER-BC Onset: 2017 Resolved: 11/18/2018 Family History Date Family Member(s) Observation Comments General Arrhythmia General Cancer General Headaches General Hypertension General Diabetes Father Hypertension Father Hypercholesterolemia Mother Multiple Sclerosis (MS) Mother Hypertension Siblings 1 1 Brother Social History Type Date Description Comments Sex Unknown Marital Status Lives With Spouse Lives With 05/08/2019 Son 14 y/o, Asperger's, Anxiety Occupation Nurse Tobacco Use Start: Unknown Former Cigarette Smoked 1-2 PPD for 18 End: Unknown Smoker years, intermittently Smoking Status Reviewed: Former Cigarette Smoked 1-2 PPD for 18 05/19/19 Smoker years, intermittently ETOH Use Occasionally consumes 3-4 drinks/ week alcohol Tobacco Use Start: Unknown Patient is a former End: Unknown smoker Recreational Drug Use Denies Drug Use Exercise Exercises regularly Type/Frequency Allergies, Adverse Reactions, Alerts Active Allergies Reaction Severity Comments Date Cephalexin 04/28/2018 Inactive Allergies NKDA 09/22/2015 Medications Active Medications SIG Qnty Indications Ordering Date Provider Buspirone HCL 1 tablet twice 90tabs Beverley Gong MD 05/08/2019 5mg Tablets daily as needed Lovastatin 3 times a week 90tabs Fer 05/06/2012 20mg Tablets MD Kadi Omeprazole Take One Capsule 60caps Fer 01/16/2012 20mg Capsules By Mouth once MD Kadi DR Daily Desloratadine 1 by mouth every Unknown 10mg day Tablets Metamucil Smooth 1 po qd Unknown Texture Fiber Singles 28% Packet Multivitamins 1 by mouth every Unknown Capsules day Escitalopram Oxalate Take 1 Tablet By Unknown 20mg Mouth Every Day Tablets Probiotic once a day Unknown Biotin 1 by mouth Unknown 1000mcg Tablets everyday Calcium 500+D3 1 tab by mouth Unknown twice a day [id number] Tablets Nasacort Allergy 24HR 2 puffs each nare Unknown every in the 55mcg/Act Aerosol morning as needed Vitamin C ER 1 by mouth every Unknown 500mg day Capsules ER History Medications Amoxicillin/Clavulanate 1 tab by mouth 10tabs Kinza Matthew 05/28/2018 - Potassium every 12 hours MIGEL Renner 08/17/2018 875-125mg Tablets Tamiflu 1 tab by mouth 14caps Alex West 12/19/2017 - 75mg Capsules twice a day KIKO OCHOA 05/22/2018 Tamiflu take one capsule 10caps Elsa Nowak 12/19/2017 - 75mg Capsules once daily for MD Joaquim 05/22/2018 10 days-influenza prophylaxis Lisinopril-Hydrochlorothiazid Take 1 Tablet By 90tabs Fer 01/07/2012 - e 20-25mg Mouth Every Day MD Kadi 01/11/2019 Tablets Naproxen Take 1 Tablet By 180tafabian Monroe 12/03/2011 - 500mg Tablets Mouth Twice MD Kadi 01/11/2019 Daily Phentermine HCL 1 po qd Unknown - 15mg Capsules 09/22/2015 Torsemide 1/2 by mouth 2x Unknown - 20mg Tablets daily 01/11/2019 Metformin HCL 1 by mouth every Unknown - 850mg Tablets day 09/21/2015 Omeprazole 1 by mouth every Unknown - 40mg Capsules DR day 03/16/2019 Lovastatin by mouth every Unknown - 20mg Tablets night at bedtime 01/11/2019 Alprazolam one by mouth up Unknown - 0.25mg Tablets to three times 09/21/2015 daily as needed for anxiety Escitalopram Oxalate 1 by mouth every Unknown - 20mg Tablets day 09/21/2015 Naproxen 1 tablet with Unknown - 500mg Tablets food by mouth 01/11/2019 twice a day as needed Topiramate 1 by mouth every Unknown - 100mg Tablets day.. Unknown Ibuprofen Unknown - 05/22/[address] Unknown - 05/22/2018 Medications Administered in Office Medication SIG Qnty Indications Ordering Provider Date PPD Injection Danielito Coppola MD 03/06/2019 Vital Signs Date Vital Result Comment 05/19/2019 9:20am Height 69 inches 5'9" Weight 170.50 lb Heart Rate 58 /min BP Systolic Sitting 116 mmHg Lue reg cuff BP Diastolic Sitting 80 mmHg Lue reg cuff Respiratory Rate 16 /min O2 % BldC Oximetry 99 % On Ra BMI (Body Mass Index) 25.2 kg/m2 05/08/2019 9:54am Height 69 inches 5'9" Weight 173.38 lb Heart Rate 45 /min BP Systolic 118 mmHg BP Diastolic 78 mmHg Body Temperature 98.3 F O2 % BldC Oximetry 99 % BMI (Body Mass Index) 25.6 kg/m2 03/17/2019 1:09pm Height 69 inches 5'9" Weight 175.00 lb Heart Rate 58 /min BP Systolic 112 mmHg BP Diastolic 64 mmHg BMI (Body Mass Index) 25.8 kg/m2 02/11/2019 8:36am Height 69 inches 5'9" Weight 181.00 lb Heart Rate 78 /min BP Systolic Sitting 112 mmHg BP Diastolic Sitting 70 mmHg BMI (Body Mass Index) 26.7 kg/m2 11/18/2018 7:57am Height 69 inches 5'9" Weight [...] Date Facility Test Result H/L Range Note Lipid Profile 05/14/2019 [facility] Triglycerides 74 mg/dL 1 (Trig/Chol/HDL) [address] [place] [address] [phone] Cholesterol 167 mg/dL 2 HDL Cholesterol 54.4 mg/dL 3 LDL Cholesterol 98 mg/dL 4 Liver Function 05/14/2019 [facility] Total Protein 6.4 g/dL N 6.4-8.[address] [place] [address] [phone] Albumin 4.2 g/dL N 3.2-5.2 Globulin 2.2 g/dL N 2-4 Albumin/Globulin Ratio 1.9 N 1-3 Total Bilirubin 0.40 mg/dL N 0.2-1.0 Direct Bilirubin 0.10 mg/dL N 0.03-0.18 Indirect Bilirubin 0.3 mg/dL N 0.3-1.0 Alkaline Phosphatase 57 U/L N 34-104 Alt 66 U/L High 7-52 Ast 39 U/L N 13-39 Wound 01/19/2019 [facility] Wound/Misc SEE RESULT 5 Culture/Sensi [address] [place] [address] Stain [phone] Laboratory test 09/02/2018 [facility] Surgical SEE RESULT [address] [place] [address] [phone] CBC No Diff 08/25/2018 [facility] White Blood Count 9.7 10^3/uL N 3.5-[address] [place] [address] [phone] Red Blood Count 4.58 10^6/uL N 4.00-5.40 Hemoglobin 14.0 g/dL N 12.0-16.0 Hematocrit 40 % N 35-47 Mean Corpuscular Volume 88 fL N 80-97 Mean Corpuscular Hemoglobin 31 pg N 27-31 Mean Corpuscular HGB Conc 35 g/dL N 31-36 Red Cell Distribution Width 13 % N 10.5-15 Platelet Count 242 10^3/uL N 150-450 Mean Platelet Volume 8.9 um3 N 7.4-10.4 CBC No Diff 08/25/2018 [facility] White Blood 9.7 10^3/uL N 3.5-10.[address] [place] [address] [phone] Red Blood Count 4.58 10^6/uL N 4.00-5.40 Hemoglobin 14.0 g/dL N 12.0-16.0 Hematocrit 40 % N 35-47 Mean Corpuscular Volume 88 fL N 80-97 Mean Corpuscular Hemoglobin 31 pg N 27-31 Mean Corpuscular HGB Conc 35 g/dL N 31-36 Red Cell Distribution Width 13 % N 10.5-15 Platelet Count 242 10^3/uL N 150-450 Mean Platelet Volume 8.9 um3 N 7.4-10.4 Basic Metabolic 08/25/2018 [facility] Sodium 134 mmol/L Low 135-[address] [place] [address] [phone] Potassium 3.7 mmol/L N 3.5-5.0 Chloride 96 mmol/L Low 101-111 Co2 Carbon Dioxide 29 mmol/L N 22-32 Anion Gap 9 mmol/L N 2-11 Glucose 96 mg/dL N 70-100 Blood Urea Nitrogen 20 mg/dL N 6-24 Creatinine 0.79 mg/dL N 0.51-0.95 BUN/Creatinine Ratio 25.3 High 8-20 Calcium 9.6 mg/dL N 8.6-10.3 Egfr Non- 80.2 >60 Egfr 97.0 >60 8 Laboratory test 11/12/2017 [facility] Surgical SEE RESULT 9 , [address] [place] [place] [address] [phone] Urinalysis 01/10/2017 [facility] Urine Color Yellow N Profile [address] [place] [address] [phone] Urine Appearance Clear N Urine Specific [place] 1.009 Low 1.010-1.030 Urine pH 5.0 N [...] Present Abnormal Absent Urine Culture And 01/10/2017 [facility] Urine Culture SEE RESULT [address] [place] [address] [phone] Laboratory test 12/14/2016 [facility] Surgical SEE RESULT [address] [address] [phone] 1 Desirable: <150 Borderline High: 150-199 High: 200-499 Very High: >500 2 Desirable: <200 Borderline High: 200-239 High: >239 3 Low: <40 Desirable: 40-60 High: >60 4 Desirable: <100 Near Optimal: 100-129 Borderline High: 130-159 High: 160-189 Very High: >189 5 SEE RESULT BELOW Name: RYAN MEMBRENO : [address]: Joselo Feldman RPA Acct: [id number] Unit: [id number] AGE: 43 Location: [facility] Re01/19/19 SEX: F Status: REG REF SPEC: [id number] GLORIA: 01/19/19-[address] [facility] [address]: Joselo Feldman RPA REQ: [id number] RECD: 01/19/19 STATUS: COMP _ SOURCE: MISC SOUR SPDESC: ORDERED: Culture Stain COMMENTS: Gram stain not recommended for this specimen source. [id number] Specimen Description nasal culture Procedure Result Reported Site Wound/Misc Gram Stain Final 01/20/19- 724 ML Test not performed Wound/Misc Culture Final 01/21/19- 1231 ML Organism 1 NORMAL PATRICIA Quantity 1+ * ML - Main Lab . END OF REPORT DEPARTMENT OF PATHOLOGY, [address] [place] [address] Bossman Sosa M.D. Director [facility] # [id number] 6 SEE RESULT BELOW Name: RYAN MEMBRENO : [address]: Alex West MD Acct: [id number] Unit: [id number] AGE: 43 Location: [facility] 352-01 Re09/02/18 Dis: 09/03/18 SEX: F Status: DIS IN SPEC: [id number] GLORIA: 09/02/18- SUBM DR: Alex West MD REQ: [id number] RECD: 09/02/18 STATUS: SOUT _ ORDERED: LEVEL 5 FINAL [...] aggregate of hernandez-brown irregular mucosal tissue fragments. Waste Specialist sections, one cassette. Signed by and Reported on: Bossman Sosa MD 1637 END OF REPORT DEPARTMENT OF PATHOLOGY, [address] [place] [address] Bossman Sosa M.D. Director [facility] # [id number] 7 09/02 8 Because ethnic data is not always readily [...] 15-29 5 Kidney failure <15 (or dialysis) 9 [id number] 10 SEE RESULT BELOW Name: RYAN MEMBRENO : [address]: Eyal Fagan MD Acct: [id number] Unit: [id number] AGE: 42 Location: [facility] Re11/12/17 SEX: F Status: REG REF SPEC: [id number] GLORIA: 11/12/17-[address]: Eyal Fagan MD REQ: [id number] RECD: 11/12/17-1206 STATUS: SOUT _ ORDERED: LEVEL 4, IMMUNO-FIRST, IMMUNO-ADDL, IMMUNO-QUANT COMMENTS: [id number] FINAL DIAGNOSIS Skin, left foot, excision: -- [...] performed at Main Lab DEPARTMENT OF PATHOLOGY, [address] [place] [address] Bossman Sosa M.D. Director [facility] # [id number] 11 SEE RESULT BELOW Name: RYAN MEMBRENO : [address]: Joselo Feldman RPA Acct: [id number] Unit: [id number] AGE: 41 Location: LAB Re01/10/17 SEX: F Status: REG REF SPEC: [id number] GLORIA: 01/10/17-[address] [facility] [address]: Joselo Feldman RPA REQ: [id number] RECD: 01/10/17151 STATUS: SUPRIYA TOSCANO DR: Emily DOE _ SOURCE: URINE SPDESC: ORDERED: Urine Culture Procedure Result Reported Site Urine Culture Final 01/11/17- 1607 ML No Growth (<1,000 CFU/mL) * ML - MAIN LAB ([facility]) . END OF REPORT * ML=Testing performed at Main Lab DEPARTMENT OF PATHOLOGY, [address] [place] [address] Bossman Sosa M.D. Director [facility] # [id number] 12 SEE RESULT BELOW Name: RYAN MEMBRENO : [address]: Eyal Fagan MD Acct: [id number] Unit: [id number] AGE: 41 Location: [facility] Re12/14/16 SEX: F Status: REG REF SPEC: [id number] GLORIA: 12/14/16-[address] [facility] [address]: Eyal Fagan MD REQ: [id number] RECD: 12/14/16 STATUS: SOUT _ ORDERED: LEVEL IV COMMENTS: [id number] FINAL DIAGNOSIS Skin, left lower leg, excision: [...] performed at Main Lab DEPARTMENT OF PATHOLOGY, [address] [place] [address] Bossman Sosa M.D. Director [facility] # [id number] Procedures Date Code Description Status 02/13/2019 94430 Nerve Conduction 05-11 Studies Completed 02/13/2019 86989 Needle Electromyography Each Extremity W/Related Completed Paraspinal Areas 11/21/2018 27095976 Mammogram Completed 05/25/2018 35699 Sleep Study Unattended,HRT Rate,Oxygen Sat,Resp Completed Effort/Airflow 02/10/2018 01265948 Mammogram Completed 11/12/2017 62314 Biopsy Skin Lesion Single Completed 12/14/2016 15531 Excise Benign lesion 1.1-2CM Trunk/Arm/Leg Completed 04/17/2010 43795 Visual funct screen test, automated Completed 04/17/2010 21746 Pure Tone-Air Condition Only Completed 12/24/2008 46429 Screening Vision Test Completed 12/24/2008 07147 EKG Tracing & Interpretation Completed 12/24/2008 96621 Pure Tone-Air Condition Only Completed Encounters Type Date Location Provider Dx Diagnosis Office Visit 05/08/2019 [facility] Internal Beverley Gong MD 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 R42 Dizziness and giddiness Z98.84 Bariatric surgery status E78.00 Pure hypercholesterolemia, unspecified R92.8 Oth abn and inconclusive findings on dx imaging of breast Office Visit 03/17/2019 1:00p [place] Jose Quiñonez, G43.009 Migraine w/o aura, Neurologic BELL RINGER not intractable, [facility] w/o status migrainosus R42 Dizziness and giddiness R20.0 Anesthesia of skin Office Visit 02/11/2019 8:30a [place] Neurologic Jose Quiñonez BELL RINGER R42 Dizziness and [facility] giddiness G43.009 Migraine w/o aura, not intractable, w/o status migrainosus R20.0 Anesthesia of skin H53.8 Other visual disturbances Office Visit 11/18/2018 Pulmonology And Ariana G47.33 Obstructive sleep 8:00a Sleep [facility] SANDI Dawn RN, apnea (adult) [facility] [place] (pediatric) R09.81 Nasal congestion Z68.28 Body mass index (BMI) 28.0-28.9, adult Office Visit 08/18/2018 Pulmonology And Ariana G47.33 Obstructive sleep 8:30a [facility] Dawn RN, apnea (adult) [facility] [place] (pediatric) Z68.36 Body mass index (BMI) 36.0-36.9, adult Office Visit 05/29/2018 Pulmonology And Ariana G47.33 Obstructive sleep 11:30a [facility] Dawn RN, apnea (adult) [facility] HYDRO PNEUMATIC TESTER-BC (pediatric) Z68.37 Body mass index (BMI) 37.0-37.9, adult Office Visit 05/28/2018 Surgical Kinza Matthew S70.12xA Contusion of 11:30a [facility] MIGEL Renner left thigh, [facility] initial encounter W54.0xxA Bitten by dog, initial encounter Office Visit 05/23/2018 8:30a Pulmonology And Sleep Alice Burton, R06.83 Snoring [facility] R40.0 Somnolence E66.09 Other obesity due to excess calories Z68.36 Body mass index (BMI) 36.0-36.9, adult Office Visit 04/28/2018 3:00p Orthopedic Maninder Jasmine M72.2 Plantar fascial Services Of MD magnus Webber M67.02 Short Achilles tendon (acquired), left ankle M76.62 Achilles tendinitis, left leg Office Visit 05/01/2017 1:10p [facility] Dermatology Louis Lopes MD L60.1 Onycholysis D22.9 Melanocytic nevi, unspecified Office Visit 09/22/2015 [place]/Radha Holley R20.0 Anesthesia of 10:00a Neurologic Serv Of Jose Miguel Guevara skin [facility] G31.84 Mild cognitive impairment, so stated Plan of Treatment Future Appointment(s):07/21/2019 8:15 am - Ariana Dawn DNP, RN, HYDRO PNEUMATIC TESTER-BC at Pulmonology And Sleep [facility]07/10/2019 4:20 pm - Beverley Gong MD at [facility] Internal Medicine - [facility]05/19/2019 - Ariana Dawn DNP, RN, HYDRO PNEUMATIC TESTER- BCG47.33 Obstructive sleep apnea (adult) (pediatric)New Orders:Sleep Study, Ordered: 05/19/19Follow up:2 monthsRecommendations:Post weight loss in-lab study to evaluate status of apnea and treatment modality if indicated. Call1- week after study for results.
[2019-06-08] MEDS ORDERED: DOXYcycline CAP(*) 100 MG PO ONE (20:47)
[2019-06-08 20:52] VITALS: BP 103/70
== END 2019-06-08 21:11 | disposition home or self-care (01) ==
LOC: UCCORT 20:18
DX: S61.250A Open bite of right index finger without damage to nail, initial encounter (principal); W54.0XXA Bitten by dog, initial encounter; Y93.89 Activity, other specified; Y92.009 Unspecified place in unspecified non-institutional (private) residence as the place of occurrence of the external cause; Z87.891 Personal history of nicotine dependence
CPT/HCPCS: 99212; A9270-GY; G0463

== ENCOUNTER 2023-09-17 13:41 | Observation (INO) ==
[2023-09-17] MEDS ORDERED: Lactated Ringers 1000 ml BAG 1,000 ML IV ONE (16:14)
[2023-09-17 16:31] LABS: ABS Basophils 0.1 10^3/uL (0.0-0.1); ABS Eosinophils 0.5 10^3/uL (0.0-0.5); ABS Lymphocytes 1.4 10^3/uL (1.0-4.8); ABS Monocytes 0.6 10^3/uL (0.0-0.9); ABS Neutrophils 7.9 10^3/uL (1.5-7.6); Hematocrit 33.9 % (35-45); Lymphocyte % 13.7 %; Mean Corpuscular Hgb Conc 35.4 g/dL (31-36); Mean Corpuscular Volume 90.3 fL (80-97); Platelet Count 315 10^3/uL (150-450); Red Blood Count 3.76 10^6/uL (3.63-4.92); Red Cell Distribution Width 13.7 % (12-17); White Blood Count 10.5 10^3/uL (3.8-11.8)
[2023-09-17 16:48] LABS: Albumin 4.2 g/dL (3.2-5.2); Albumin/Globulin Ratio 1.7 (1-3); C Reactive Protein 26.36 mg/L (<8.01); Calcium 9.2 mg/dL (8.6-10.3); Creatinine, Serum 0.69 mg/dL (0.51-0.95); Globulin 2.5 g/dL (2-4); Potassium 4.1 mmol/L (3.5-5.0); Total Bilirubin 0.6 mg/dL (0.2-1.0); Total Protein 6.7 g/dL (6.4-8.9); eGFR CKD-EPI 108.3 (>60)
[2023-09-17 17:17] LABS: Urine Appearance Cloudy; Urine Bilirubin Negative (Negative); Urine Blood Negative (Negative); Urine Color Amber; Urine Glucose Negative (Negative); Urine Ketones 2+ (Negative); Urine Nitrite Negative (Negative); Urine Protein 1+(30 mg/dL) (Negative); Urine Specific Gravity 1.029 (1.002-1.030); Urine Urobilinogen Negative (Negative)
[2023-09-17 17:20] LABS: Urine Bacteria Absent (Absent); Urine Red Blood Cell Trace(0-2/hpf) (Absent); Urine Squamous Epithelial Cell Present (Absent); Urine White Blood Cell Trace(0-5/hpf) (Absent)
[2023-09-17] MEDS ORDERED: Iohexol 350 (CONTRAST) 500 ML MDV IV ONE (17:37)
[2023-09-17] MEDS ORDERED: HYDROmorphone 0.5 MG/0.5 ML SYRINGE IV SLOW PU PRN (18:09)
[2023-09-17] MEDS ORDERED: Albuterol HFA INHALER 8 gm MDI INH PRN (18:55)
[2023-09-17] MEDS: Ondansetron 4 mg VIAL 2 MG/ML 2 ml VIAL IV PRN (20:03)
[2023-09-17] MEDS: Acetaminophen IV 1 GM/100ML 1,000 MG/100 ML BAG IV PRN (20:03)
[2023-09-17] MEDS: Lactated Ringers 1000 ml BAG 1,000 ML IV SCH (20:03)
[2023-09-17] MEDS ORDERED: Prochlorperazine 5 mg/ml 2 ml VIAL (10 mg) IV ONE (22:10)
[2023-09-18] MEDS: Ondansetron 4 mg VIAL 2 MG/ML 2 ml VIAL IV PRN ×3 (00:38→08:35)
[2023-09-18] MEDS: Acetaminophen IV 1 GM/100ML 1,000 MG/100 ML BAG IV PRN ×3 (01:03→17:21)
[2023-09-18] MEDS: Lactated Ringers 1000 ml BAG 1,000 ML IV SCH ×3 (04:16→21:21)
[2023-09-18] MEDS ORDERED: Prochlorperazine 5 mg/ml 2 ml VIAL (10 mg) IV PRN ×2 (08:25→16:29)
[2023-09-18] MEDS: Pantoprazole VIAL 40 MG VIAL IV SCH (08:37)
[2023-09-18] MEDS: CMCS:FLUTICAS/UMECLI/VILANT 200-62.5-25 MDI (NF) INH SCH (08:38)
[2023-09-18] MEDS ORDERED: Propofol 10 MG/ML 20 ML BTL ONE (15:10)
[2023-09-18] MEDS ORDERED: Lidocaine 2% PF 5 ML VIAL ONE (15:10)
[2023-09-18] MEDS ORDERED: Midazolam 2 mg/2 ml VIAL 1 mg/ml 2 ml VIAL (2 mg) ONE (15:58)
[2023-09-18] MEDS ORDERED: Glycopyrrolate IV 0.2 MG/ML 1 ML VIAL ONE (16:08)
[2023-09-18] MEDS ORDERED: fentaNYL 100 mcg/2 ml 50 MCG/ML VIAL IV PRN (16:29)
[2023-09-18] MEDS ORDERED: Ondansetron 4 mg VIAL 2 MG/ML 2 ml VIAL IV PRN (16:29)
[2023-09-18] MEDS ORDERED: Naloxone 0.4 mg VIAL 0.4 mg/ml 1 ml VIAL IV PRN (16:29)
[2023-09-18] MEDS ORDERED: Ondansetron 4 mg VIAL 2 MG/ML 2 ml VIAL ONE (16:32)
[2023-09-19] MEDS: Lactated Ringers 1000 ml BAG 1,000 ML IV SCH (03:45)
[2023-09-19 06:27] VITALS: BP 109/68
[2023-09-19] MEDS: CMCS:FLUTICAS/UMECLI/VILANT 200-62.5-25 MDI (NF) INH SCH (07:51)
[2023-09-19] MEDS: Pantoprazole VIAL 40 MG VIAL IV SCH (07:52)
[2023-09-19] MEDS ORDERED: Lisdexamfetamine 10 mg CAP(NF) PO SCH (09:00)
[2023-09-19] MEDS ORDERED: Venlafaxine XR 75 mg PO SCH (09:00)
[2023-09-19] MEDS ORDERED: Venlafaxine XR 75 mg PO ONE (09:23)
== END 2023-09-19 09:47 | disposition home or self-care (01) ==
LOC: ED 13:41 → EDHOLD 13:41 → SSU 18:48
PROVIDERS: ADMIT Surgery; ATTEND Surgery
PROC: O.GIEGD (2023-09-18 15:20)